=== PATIENT | male | born 1950 | race American Indian/Alaskan Native ===

== ENCOUNTER 2020-04-01 16:24 | Emergency (ER) | payer BC, MEDICARE ==
--- NOTE | 2020-04-01 16:58 | Event Note ---
ED Screening Note ED Screening Note: upper abd pain [id number] states abd feels bloated no appetite had a normal BM today states that he went to his PCP and was prescribed linzess has an appointment with GI on 04/10/2020 states he last had a colonscopy about 10 years ago no vomiting no nausea no blood in the stool no dark stool no SOB no cough no fever no urinary sx PSHx CABG and back surgery no allergies to meds This initial assessment/diagnostic orders/clinical plan/treatment(s) is/are subject to change based on patients health status, clinical progression and re- assessment by fellow clinical providers in the ED. Further treatment and workup at subsequent clinical providers discretion. Patient/guardian urged not to elope from the ED as their condition may be serious if not clinically assessed and managed. Initial orders include: labs, EKG, ua
[2020-04-01 16:59] LABS: Basophils % (Auto) 0.4 % (0.0-1.8); Eosinophils # (Auto) 0.1 K/mm3 (0.0-0.4); Eosinophils % (Auto) 0.8 % (0.0-4.3); Hematocrit 40.9 % (35.5-45.6); Hemoglobin 13.6 gm/dl (11.8-15.2); Lymphocytes # (Auto) 1.1 K/mm3 (1.2-5.4); Lymphocytes % (Auto) 15.6 % (13.4-35.0); Mean Corpuscular HGB Conc 33 % (32-34); Mean Corpuscular Volume 95 fl (84-94); Monocytes # (Auto) 0.7 K/mm3 (0.0-0.8); Monocytes % (Auto) 10.3 % (0.0-7.3); Platelet Count 138 K/mm3 (140-440); Red Blood Count 4.31 M/mm3 (3.65-5.03); Red Cell Distribution Width 14.5 % (13.2-15.2)
[2020-04-01 17:22] LABS: Alanine Aminotransferase 137 units/L (7-56); Albumin 4.3 g/dL (3.9-5); BUN/Creatinine Ratio 13; Blood Urea Nitrogen 14 mg/dL (9-20); Calcium 8.8 mg/dL (8.4-10.2); Hemolysis Index 10
[2020-04-01 17:32] LABS: INR 1.04 (0.87-1.13); Partial Thromboplastin Time 27.6 Sec. (24.2-36.6)
[2020-04-01 18:05] LABS: Bilirubin,Urine NEG (Negative); Blood,Urine NEG (Negative); Color,Urine Yellow (Yellow); Mucus,Urine FEW /HPF; Urobilinogen,Urine < 2.0 mg/dL (<2.0)
--- NOTE | 2020-04-01 20:43 | Emergency Department Report ---
ED Abdominal Pain HPI - General Chief Complaint: Abdominal Pain Stated Complaint: STOMACH PAIN PUI?: No Time Seen by Provider: 04/01/20 20:35 Source: patient Mode of arrival: Ambulatory Limitations: No Limitations - History of Present Illness Initial Comments: Patient is a 70-year-old male that presents emergency room with complaints of abdominal pain. Patient states his abdominal pain started yesterday. Patient states he is having bloating and poor appetite. Patient states he is also constipated. Patient denies nausea vomiting. Patient denies fever and chills. Patient denies shortness of breath. MD Complaint: abdominal pain -: Sudden - Related Data Home Medications Medication Instructions Recorded Confirmed Last Taken Atorvastatin [Lipitor] 40 mg PO DAILY 12/27/14 09/23/18 09/22/18 10:00 Sennosides/Docusate Sodium [Stool 1 tab PO DAILY PRN 12/27/14 09/23/18 09/12/18 10:00 Softener-Stim Lax Tablet] raNITIdine HCL [Ranitidine 150mg 150 mg PO BID 12/27/14 09/23/18 09/22/18 09:00 Cap] Previous Rx's Medication Instructions Recorded Last Taken Type Acyclovir [Zovirax Tab] 800 mg PO TID #30 tablet 09/25/18 Unknown Rx Aspirin [Aspirin BABY CHEW TAB] 81 mg PO QDAY #30 tab.chew 09/25/18 Unknown Rx Chlorthalidone [Thalitone] 25 mg PO QAM #30 tablet 09/25/18 Unknown Rx Doxazosin [Cardura] 1 mg PO QDAY #30 tablet 09/25/18 Unknown Rx Fluticasone [Flonase] 100 mcg NS QDAY PRN #1 bottle 09/25/18 Unknown Rx Furosemide [Lasix TAB] 20 mg PO BID@0600,1800 #60 tablet 09/25/18 Unknown Rx Montelukast [Singulair] 10 mg PO QPM #30 tablet 09/25/18 Unknown Rx Potassium Chloride [K-Dur] 10 meq PO BIDWM #60 tablet 09/25/18 Unknown Rx Tamsulosin [Flomax] 0.4 mg PO QPM #30 capsule 09/25/18 Unknown Rx Valsartan/Hydrochlorothiazide 0.5 tab PO Q12H #60 tablet 09/25/18 Unknown Rx [Valsartan-Hctz 320-25 mg Tab] Warfarin Sodium [Coumadin] 1 mg PO Q48H #60 tablet 09/25/18 Unknown Rx Warfarin Sodium [Coumadin] 6 mg PO Q48HR #30 tablet 09/25/18 Unknown Rx allopurinoL [Zyloprim] 300 mg PO QDAY #30 tablet 09/25/18 Unknown Rx carvediloL [Coreg] 25 mg PO BID #60 tablet 09/25/18 Unknown Rx dilTIAZem HCl [Diltiazem 24Hr ER 120 mg PO Q12H #60 cap.er.deg 09/25/18 Unknown Rx (Xr)] hydrALAZINE [Apresoline TAB] 25 mg PO TIDWM #90 tablet 09/25/18 Unknown Rx Docusate Sodium [Colace] 100 mg PO TID PRN #30 capsule 04/01/20 Unknown Rx Magnesium Citrate 295 ml PO DAILY #1 solution 04/01/20 Unknown Rx Allergies Allergy/AdvReac Type Severity Reaction Status Date / Time No Known Allergies Allergy Verified 11/10/14 08:01 ED Review of Systems ROS: Stated complaint: STOMACH PAIN Other details as noted in HPI Constitutional: denies: chills, fever Eyes: denies: eye pain, eye discharge, vision change ENT: denies: ear pain, throat pain Respiratory: denies: cough, shortness of breath, SOB with exertion, SOB at rest, wheezing Cardiovascular: denies: chest pain, palpitations Endocrine: no symptoms reported Gastrointestinal: abdominal pain, constipation. denies: nausea, vomiting, diarrhea, hematemesis, melena, hematochezia Genitourinary: denies: urgency, dysuria Musculoskeletal: denies: back pain, joint swelling, arthralgia Skin: denies: rash, lesions Neurological: denies: headache, weakness, paresthesias Psychiatric: denies: anxiety, depression Hematological/Lymphatic: denies: easy bleeding, easy bruising ED Past Medical Hx - Past Medical History Previous Medical History?: Yes Hx Hypertension: Yes Hx Heart Attack/AMI: Yes (2013) Hx Congestive Heart Failure: Yes Hx Diabetes: No Hx Liver Disease: No Hx Renal Disease: No Hx Sickle Cell Disease: No Hx Arthritis: Yes Hx Seizures: No Hx Asthma: No Hx COPD: No Hx HIV: No Additional medical history: -2014 - Surgical History Past Surgical History?: Yes Hx Open Heart Surgery: Yes (Aug 14, 2014) Hx Pacemaker: No Hx Internal Defibrillator: No Additional Surgical History: pacemaker,vee 2014 - Family History Family history: no significant - Social History Smoking Status: Former Smoker Substance Use Type: Prescribed - Medications Home Medications: Home Medications Medication Instructions Recorded Confirmed Last Taken Type Atorvastatin [Lipitor] 40 mg PO DAILY 12/27/14 09/23/18 09/22/18 10:00 History Sennosides/Docusate Sodium [Stool 1 tab PO DAILY PRN 12/27/14 09/23/18 09/12/18 10:00 History Softener-Stim Lax Tablet] raNITIdine HCL [Ranitidine 150mg 150 mg PO BID 12/27/14 09/23/18 09/22/18 09:00 History Cap] Acyclovir [Zovirax Tab] 800 mg PO TID #30 tablet 09/25/18 Unknown Rx Aspirin [Aspirin BABY CHEW TAB] 81 mg PO QDAY #30 tab.chew 09/25/18 Unknown Rx Chlorthalidone [Thalitone] 25 mg PO QAM #30 tablet 09/25/18 Unknown Rx Doxazosin [Cardura] 1 mg PO QDAY #30 tablet 09/25/18 Unknown Rx Fluticasone [Flonase] 100 mcg NS QDAY PRN #1 bottle 09/25/18 Unknown Rx Furosemide [Lasix TAB] 20 mg PO BID@0600,1800 #60 tablet 09/25/18 Unknown Rx Montelukast [Singulair] 10 mg PO QPM #30 tablet 09/25/18 Unknown Rx Potassium Chloride [K-Dur] 10 meq PO BIDWM #60 tablet 09/25/18 Unknown Rx Tamsulosin [Flomax] 0.4 mg PO QPM #30 capsule 09/25/18 Unknown Rx Valsartan/Hydrochlorothiazide 0.5 tab PO Q12H #60 tablet 09/25/18 Unknown Rx [Valsartan-Hctz 320-25 mg Tab] Warfarin Sodium [Coumadin] 1 mg PO Q48H #60 tablet 09/25/18 Unknown Rx Warfarin Sodium [Coumadin] 6 mg PO Q48HR #30 tablet 09/25/18 Unknown Rx allopurinoL [Zyloprim] 300 mg PO QDAY #30 tablet 09/25/18 Unknown Rx carvediloL [Coreg] 25 mg PO BID #60 tablet 12/15/18 Unknown Rx dilTIAZem HCl [Diltiazem 24Hr ER 120 mg PO Q12H #60 cap.er.deg 09/25/18 Unknown Rx (Xr)] hydrALAZINE [Apresoline TAB] 25 mg PO TIDWM #90 tablet 09/25/18 Unknown Rx Docusate Sodium [Colace] 100 mg PO TID PRN #30 capsule 04/01/20 Unknown Rx Magnesium Citrate 295 ml PO DAILY #1 solution 04/01/20 Unknown Rx ED Physical Exam - General Limitations: No Limitations General appearance: alert, in no apparent distress - Head Head exam: Present: atraumatic, normocephalic - Eye Eye exam: Present: normal appearance - ENT ENT exam: Present: mucous membranes moist - Neck Neck exam: Present: normal inspection - Respiratory Respiratory exam: Present: normal lung sounds bilaterally. Absent: respiratory distress - Cardiovascular Cardiovascular Exam: Present: regular rate, normal rhythm. Absent: systolic murmur, diastolic murmur, rubs, gallop - GI/Abdominal GI/Abdominal exam: Present: soft, tenderness (Generalized tenderness to palpation), normal bowel sounds - Rectal Rectal exam: Present: deferred - Extremities Exam Extremities exam: Present: normal inspection - Back Exam Back exam: Present: normal inspection - Neurological Exam Neurological exam: Present: alert, oriented X3 - Psychiatric Psychiatric exam: Present: normal affect, normal mood - Skin Skin exam: Present: warm, dry, intact, normal color. Absent: rash ED Course Vital Signs 04/01/20 16:32 Temperature 97.7 F Pulse Rate 52 L Respiratory 18 Rate Blood Pressure 160/86 O2 Sat by Pulse 98 Oximetry - Reevaluation(s) Reevaluation #1: I discussed all results and clinical findings with patient. I discussed plan of care with patient. Patient agrees with plan of care. Patient is stable for discharge. Patient will be discharged home. Patient given discharge instructions. Patient voiced understanding of discharge instructions. 04/01/20 22:35 ED Medical Decision Making - Lab Data Result diagrams: 04/01/20 16:45 04/01/20 16:45 - Radiology Data Radiology results: report reviewed, image reviewed interpreted by me: No acute findings on chest x-ray. CT scan of the abdomen report reviewed. CT scan shows mild constipation. - Medical Decision Making Patient is a 70-year-old male that presents emergency room with complaints of abdominal pain. Patient also complains of constipation. Patient had a CT done to rule out a small bowel and large bowel obstruction. Patient CT shows mild constipation. Patient is stable for discharge. Patient will be discharged home. Patient's labs are essentially unremarkable. Patient has a cardiac history and had an EKG G done which shows no acute findings. Patient's BNP at [address] was done which showed no pulmonary edema. Patient denies any complaints of chest pain or shortness of breath. Patient stable for discharge. Patient be discharged home. - Differential Diagnosis Constipation, abdominal pain, sbo, lbo Critical care attestation.: If time is entered above; I have spent that time in minutes in the direct care of this critically ill patient, excluding procedure time. ED Disposition Clinical Impression: Elevated brain natriuretic peptide (BNP) level Abdominal pain Qualifiers: Abdominal location: periumbilical Qualified Code(s): R10.33 - Periumbilical pain Constipated Qualifiers: Constipation type: unspecified constipation type Qualified Code(s): K59.00 - Constipation, unspecified Coronary artery disease Qualifiers: Coronary Disease-Associated Artery/Lesion type: unspecified vessel or lesion type [place] vs. transplanted heart: [place] heart Associated angina: without angina Qualified Code(s): I25.10 - Atherosclerotic heart disease of [place] coronary artery without angina pectoris Systolic heart failure Qualifiers: Heart failure chronicity: chronic Qualified Code(s): I50.22 - Chronic systolic (congestive) heart failure Disposition: TO HOME OR SELFCARE Is pt being admited?: No Does the pt Need Aspirin: No Condition: Stable Instructions: Constipation (ED), High Fiber Diet (ED), How to Take a Blood Pressure (ED), Heart Healthy Diet (ED), DASH Eating Plan (ED), Low Sodium Diet (ED) Additional Instructions: Patient to follow-up with primary care in 2 to 3 days. Patient to follow-up with dental chairside assistant in 2 to 3 days. 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 Patient to rest. Patient to increase water. Patient to eat a high-fiber diet. Patient to take meds as directed. Patient to return to the ER if condition worsens, changes or new symptoms arise. Prescriptions: Docusate Sodium [Colace] 100 mg PO TID PRN #30 capsule PRN Reason: Constipation Magnesium Citrate 295 ml PO DAILY #1 solution Referrals: SAMEER ROSS MD [Primary Care Provider] - 2-3 Days Time of Disposition: 22:41
--- NOTE | 2020-04-01 22:03 | XRay Report ---
CHEST 1 VIEW INDICATION / CLINICAL INFORMATION: abn ekg. elevated bnp. COMPARISON: 09/06/2017 FINDINGS: SUPPORT DEVICES: None. HEART / MEDIASTINUM: Changes of prior median sternotomy and valve replacement are noted. There is an atrial appendage clip. There is enlargement of the cardiac silhouette. LUNGS / PLEURA: There are patchy airspace opacities noted in the right lung base.. No pneumothorax. ADDITIONAL FINDINGS: No significant additional findings. IMPRESSION: 1. There is patchy airspace opacity in the right lung base. There is enlargement of the cardiac silhouette. Signer Name: Theodore Mckeon MD Signed: 04/01/2020 9:58 PM Workstation Name: [id number]
--- NOTE | 2020-04-01 22:23 | Cat Scan Report ---
CT ABDOMEN AND PELVIS WITH CONTRAST INDICATION: Abdominal pain CONTRAST: 100 cc Omnipaque 300 IV COMPARISON: 09/23/[address] scans at this location are performed using CT dose reduction for ALARA by means of automated e xposure control. FINDINGS: Scarring is again seen in the left lung base. Cardiomegaly is again seen. Prominent coronar y artery calcifications are noted. Small hiatal hernia is seen. Lumbar surgical changes cause mild artifact. Several tiny cysts and probable cysts are again seen sca ttered in the liver. Spleen appears within normal limits. Small cysts are again seen in the left kidn ey. No urinary obstructive changes are noted. Small left adrenal nodule is stable. Spleen and pancrea s show no lesions. Gallbladder and bile ducts appear within normal limits. Appendix appears within no rmal limits. Moderate amount of stool is seen in nondilated right colon. No evidence of bowel obstruction is seen. Mild colonic diverticulosis is seen without evidence of diverticulitis. No free fluid is seen. No ly mphadenopathy is noted. Prostate is moderately enlarged and impinges on the bladder. Vesicles are not enlarged. Atherosclerotic changes are noted without aneurysmal dilatation though the distal left com mon iliac artery is mildly ectatic with a diameter of 14 mm. No focal inflammatory changes are seen. IMPRESSION: Evidence of mild right-sided constipation Signer Name: Meir Stephen MD Signed: 04/01/2020 10:18 PM Workstation Name: [id number]
[2020-04-01 23:25] VITALS: BP 156/81
== END 2020-04-01 23:00 | disposition home or self-care (01) ==
LOC: ED 16:24
DX: I25.10 Atherosclerotic heart disease of native coronary artery without angina pectoris (principal); I11.0 Hypertensive heart disease with heart failure; I50.20 Unspecified systolic (congestive) heart failure; K59.00 Constipation, unspecified; R10.9 Unspecified abdominal pain; R79.89 Other specified abnormal findings of blood chemistry
CPT/HCPCS: 36415; 71045; 74177; 80053; 81001; 83690; 83880; 84484; 85025; 85610; 85730; 93005; 99285; Q9967